=== PATIENT | male | born 1980 | race Caucasian/White ===

== ENCOUNTER → 2017-08-31 | Outpatient (CLI) | payer BC ==
[~2017-08-31] MED LIST: HCTZ 25MG TAB25 MG PO; NORVASC 10MG10 MG PO; PRILOSEC 20MG20 MG PO; PRINIVIL20 MG PO
== END ==
LOC: COL.RAD 07:47
DX: K76.0 Fatty (change of) liver, not elsewhere classified (principal); R74.0 Nonspecific elevation of levels of transaminase and lactic acid dehydrogenase [LDH]; R11.0 Nausea

== ENCOUNTER → 2018-02-15 | Outpatient (CLI) | payer BC | LOC: COL.RAD 10:11 | DX: M50.122 Cervical disc disorder at C5-C6 level with radiculopathy (principal) ==

== ENCOUNTER → 2019-02-05 | Outpatient (CLI) | payer OTHER, BC | LOC: MHCPAIN 14:34 | DX: M54.12 Radiculopathy, cervical region (principal); G89.29 Other chronic pain; M47.812 Spondylosis without myelopathy or radiculopathy, cervical region; M47.814 Spondylosis without myelopathy or radiculopathy, thoracic region | CPT/HCPCS: G0463 ==

== ENCOUNTER 2019-04-04 07:25 | Day surgery (SDC) | payer BC ==
[~2019-04-04] VITALS: Ht 175.3 cm; Wt 160.6 kg
[2019-04-04] VITALS (13 sets, daily range): BP systolic 107–134; BP diastolic 64–90; PULSE 69–95; TEMP 98
[~2019-04-04 07:25] MED LIST changes: +PRIL40 PO; -PRILOSEC 20MG20 MG PO
[2019-04-04 08:07] LABS: HEMATOCRIT 43.4 % (42.0-52.0); HEMOGLOBIN 14.9 g/dl (13.5-18.0); MEAN CELL VOLUME 85 fl (80.0-100.0); MEAN CORPUSCULAR HEMOGLOBIN 29 pg (27.0-31.0); MEAN CORPUSCULAR HGB CONC 34 g/dl (33.0-37.0); MEAN PLATELET VOLUME 10.2 fl (7.4-10.4); PLATELET COUNT 233 K/mm3 (130-400); RED BLOOD COUNT 5.13 M/mm3 (4.20-5.60)
[2019-04-04 08:13] LABS: PROTHROMBIN TIME 11.3 SECONDS (9.7-12.8)
[2019-04-04 08:23] LABS: CALCIUM 9.2 mg/dL (8.4-10.2); CREATININE, serum 0.75 (0.66-1.25)
--- NOTE | 2019-04-04 08:30 | NUR ---
MD notified of H&P needing to be updated at this time. stated he would up date it.
[2019-04-04] MEDS ORDERED: NEURONTIN300 MG/CAP PO (08:53)
[2019-04-04] MEDS ORDERED: ASPIRIN 81M81 MG/TA2 PO (08:54)
[2019-04-04] MEDS ORDERED: LODINE400 MG PO (08:54)
--- NOTE | 2019-04-04 09:06 | NUR ---
Patient informed that we are waiting on physician at this time. Will continue to keep patient and family updated.
--- NOTE | 2019-04-04 09:07 | NUR ---
Notified MD again about H&P not up to date. MD stated he would call when the H&P is completed.
--- NOTE | 2019-04-04 09:42 | NUR ---
Paper chart and meditech reviewed, no H&P complete at this time.
--- NOTE | 2019-04-04 09:52 | NUR ---
Patient updated at this time, regarding waiting on physician. Will continue to keep patient updated.
--- NOTE | 2019-04-04 10:15 | NUR ---
ALL MEDICATIONS GIVEN VORB WITH MD. SEE MERGE FOR ALL MEDICATION ADMIN TIMES. SEE MERGE FOR ALL RASS ASSESSMENTS DURING AND POST PROCEDURE. POSITIVE RASS ASSESSMENT IN THE RIGHT WRIST, PULSE +1.
--- NOTE | 2019-04-04 11:22 | NUR ---
Patient trasnferred to room 15. Hooked up to monitoring equipment. VS stable. RN, Perlita, at bedside. Visualized right radial site with RN. Site is clean, dry, and intact. No oozing or hematoma. Site is soft and nontender. Cap refill <3 sec. Discussed wrist restrictions with patient and family. TR band remains in place with 14 mls of air in the band. All questions addressed at this time. Call light within reach, bed in locked and lowest position.
--- NOTE | 2019-04-04 14:34 | NUR ---
Discharge instructions given to pt.pt verbalizes understanding.
--- NOTE | 2019-04-04 14:50 | NUR ---
INT removed,catheter tip intact.Pt escorted out via wheelchair by this nurse.
== END 2019-04-04 14:55 | disposition home or self-care (01) ==
LOC: COL.CAR 07:25
PROVIDERS: Internal Medicine Interventional Cardiology
DX: R07.89 Other chest pain (principal); R94.39 Abnormal result of other cardiovascular function study; R06.02 Shortness of breath; G47.33 Obstructive sleep apnea (adult) (pediatric)
CPT/HCPCS: C1769; C1887; C1894; J1644; J2250; J3010; Q9967

== ENCOUNTER → 2019-04-11 | Outpatient (CLI) | payer OTHER, BC ==
[~2019-04-11] MED LIST changes: +ASPIRIN 81M81 MG/TA2 PO; +LODINE400 MG PO; +NEURONTIN300 MG/CAP PO
== END ==
LOC: COL.RAD 09:00
DX: R90.82 White matter disease, unspecified (principal); R20.3 Hyperesthesia; T78.40XA Allergy, unspecified, initial encounter
CPT/HCPCS: A9585

== ENCOUNTER → 2019-04-25 | Outpatient (CLI) | payer OTHER | LOC: COL.RAD 14:00 | DX: M76.61 Achilles tendinitis, right leg (principal); M25.471 Effusion, right ankle ==

== ENCOUNTER → 2019-05-12 | Outpatient (CLI) | payer OTHER | LOC: COL.RAD 07:14 | DX: M25.78 Osteophyte, vertebrae (principal); R20.2 Paresthesia of skin ==

== ENCOUNTER → 2020-01-28 | Outpatient (CLI) | payer OTHER | LOC: COL.RAD 12-10 10:30 | DX: M40.204 Unspecified kyphosis, thoracic region (principal); M47.814 Spondylosis without myelopathy or radiculopathy, thoracic region ==